=== PATIENT | male | born 1940 | race Two or more races ===

== ENCOUNTER 2019-03-19 10:51 | Outpatient (CLI) | payer OTHER ==
[~2019-03-19 10:51] MED LIST: AVAPRO150 MG; LEVAQUIN750 MG PO; NORVASC 5MG TAB PO; TAMS0.4C PO; TOPROL XL50 M1 PO; URIN D.S. TABLE1 TAB
== END 2019-03-19 11:04 | disposition home or self-care (01) ==
LOC: LAB 10:51
DX: J18.9 Pneumonia, unspecified organism (principal); R73.9 Hyperglycemia, unspecified

== ENCOUNTER 2019-09-24 17:47 | Outpatient (CLI) | payer OTHER | END 2019-09-24 18:15 | disposition home or self-care (01) | LOC: RAD 17:47 | DX: G44.311 Acute post-traumatic headache, intractable (principal) | CPT/HCPCS: 70551 ==